=== PATIENT | male | born 1945 | race Caucasian/White ===

== ENCOUNTER 2024-04-06 04:23 | Emergency (ER) | payer OTHER ==
[~2024-04-06] VITALS: Ht 182.8 cm; Wt 95.5 kg
[2024-04-06] MEDS ORDERED: Tdap Vaccine 0.5 ML SYR (Adult Vaccine) IM ONE (04:40)
== END 2024-04-06 08:18 | disposition home or self-care (01) ==
LOC: ED 04:23 → EDBD 04:35 → ED 08:18
DX: S01.01XA Laceration without foreign body of scalp, initial encounter (principal); Z79.899 Other long term (current) drug therapy; W19.XXXA Unspecified fall, initial encounter; Y93.89 Activity, other specified; Y92.89 Other specified places as the place of occurrence of the external cause; Y99.8 Other external cause status